=== PATIENT | male | born 1990 | race Caucasian/White ===

== ENCOUNTER 2024-04-27 11:25 | Emergency (ER) | payer MEDICAID, OTHER ==
[~2024-04-27] VITALS: Ht 170.2 cm; Wt 68.0 kg
[2024-04-27 11:31] VITALS: O2SAT 100
[2024-04-27] MEDS: ACETAMINOPHEN 325MG TABLET PO ONE (13:16)
[2024-04-27 14:05] VITALS: BP 108/75; PULSE 86; RESP 20; TEMP 36.50292; O2SAT 100
== END 2024-04-27 14:10 | disposition home or self-care (01) ==
LOC: ER 11:25
DX: B34.9 Viral infection, unspecified (principal)
CPT/HCPCS: 71045; 99283